=== PATIENT | female | born 1975 ===

== ENCOUNTER 2018-05-05 10:21 | Emergency (ER) | payer OTHER ==
[2018-05-05 10:28] VITALS: BMI 34.5
[2018-05-05 10:29] VITALS: O2SAT 98
[2018-05-05] MEDS ORDERED: Albuterol-Ipratrop 3 mg / 0.5 (3 ml) UD INH STA (11:08)
[2018-05-05] MEDS ORDERED: Albuterol-Ipratrop 3 mg / 0.5 (3 ml) UD ONE (11:21)
[2018-05-05 12:05] LABS: BASO # 0.1 K/uL (0.0-0.2); BASO % 0.6 % (0.0-2.0); EOS # 0.4 K/uL (0.0-0.7); HEMOGLOBIN 10.2 g/dL (12.0-16.0); LYMPH # 1.9 K/uL (1.0-4.3); MEAN CELL VOLUME 65.3 fl (81.0-99.0); MEAN CORPUSCULAR HEMOGLOBIN 21.1 pg (27.0-31.0); MEAN CORPUSCULAR HGB CONC 32.3 g/dL (33.0-37.0); MEAN PLATELET VOLUME 7.9 fl (7.2-11.7); MONO # 0.6 K/uL (0.0-0.8); MONO % 7.1 % (0.0-10.0); NEUT # 6.1 K/uL (1.8-7.0); NEUT % 67.3 % (50.0-75.0); NRBC % 0.1 % (0.0-0.0); RBC 4.85 Mil/uL (3.80-5.20); RED CELL DISTRIBUTION WIDTH 17.5 % (11.5-14.5)
--- NOTE | 2018-05-05 12:07 | ED PDOC ---
HPI: SOB/CHF/COPD Time Seen by Provider: 05/05/18 10:25 Chief Complaint (Nursing): Shortness Of Breath Chief Complaint (Provider): SOB History Per: Patient History/Exam Limitations: no limitations Onset/Duration Of Symptoms: Hrs (this morning) Current Symptoms Are (Timing): Better Associated Symptoms: denies: Fever, Chills, Chest Pain Additional Complaint(s): Lilian Jimenez is a 43 year old female, with a past medical history of asthma, who presents to the emergency department for evaluation of shortness of breath onset this morning. Patient states she was walking at the park when she began to feel short of breath. Patient also reports an episode of chest tightness yesterday but she took Albuterol at home with improvement. She reports an occasional right leg swelling ongoing for a long time but denies any chest pain , fever, chills or other medical complaints. Patient states she currently feels better. PMD: None provided. Past Medical History Reviewed: Historical Data, Nursing Documentation, Vital Signs Vital Signs: Last Vital Signs Temp 98.7 F 05/05/18 14:13 Pulse 84 05/05/18 14:13 Resp 16 05/05/18 14:13 BP 133/78 05/05/18 14:13 Pulse Ox 98 05/05/18 14:13 - Medical History PMH: Asthma, HTN - Surgical History Surgical History: Appendectomy, Cholecystectomy - Family History Family History: States: Unknown Family Hx - Social History Current smoker - smoking cessation education provided: No Alcohol: None Drugs: Denies - Immunization History Hx Tetanus Toxoid Vaccination: No Hx Influenza Vaccination: No Hx Pneumococcal Vaccination: No - Home Medications Home Medications: Ambulatory Orders Medication Instructions Recorded Albuterol HFA [Ventolin HFA 90 2 puff IH [id number] PRN 04/07/17 mcg/actuation (8 g)] Albuterol 0.083% [Albuterol 3 ml IH Q6H PRN 5 Days neb 11/18/17 Sulfate 3 Ml] predniSONE [Prednisone] 40 mg PO DAILY #10 tab 03/14/18 Albuterol HFA [Ventolin HFA 90 1 - 2 puff IH Q4H PRN #1 bottle 05/05/18 mcg/actuation (8 g)] predniSONE [Prednisone] 40 mg PO DAILY #8 tab 05/05/18 - Allergies Allergies/Adverse Reactions: Allergies Allergy/AdvReac Type Severity Reaction Status Date / Time No Known Allergies Allergy Verified 03/14/18 21:26 Review of Systems ROS Statement: Except As Marked, All Systems Reviewed And Found Negative Constitutional: Negative for: Fever, Chills Cardiovascular: Negative for: Chest Pain Respiratory: Positive for: Shortness of Breath Skin: Positive for: Other (occasional leg swelling) Physical Exam - Reviewed Nursing Documentation Reviewed: Yes Vital Signs Reviewed: Yes - Physical Exam Appears: Positive for: No Acute Distress Head Exam: Positive for: ATRAUMATIC, NORMAL INSPECTION, NORMOCEPHALIC Skin: Positive for: Normal Color, Warm, Dry Eye Exam: Positive for: Normal appearance, EOMI, PERRL ENT: Positive for: Normal ENT Inspection Neck: Positive for: Painless ROM Cardiovascular/Chest: Positive for: Regular Rate, Rhythm. Negative for: Murmur Respiratory: Positive for: Wheezing (slight). Negative for: Respiratory Distress Gastrointestinal/Abdominal: Positive for: Normal Exam, Soft. Negative for: Tenderness Back: Positive for: Normal Inspection Extremity: Positive for: Normal ROM (upper and lower extremities), Capillary Refill (less than 2 second, neurovascular intact), Swelling (mild to right leg) . Negative for: Deformity Neurologic/Psych: Positive for: Alert, Oriented. Negative for: Motor/Sensory Deficits - Laboratory Results Result Diagrams: 05/05/18 11:50 05/05/18 11:50 - ECG O2 Sat by Pulse Oximetry: 98 (RA) Pulse Ox Interpretation: Normal Medical Decision Making Medical Decision Making: Time: 10:54 Initial Impression: asthma exacerbation, improved now Initial Plan: --CMP --CBC w/ differential --Duoneb 3 ml INH --prednisone 40 mg PO --Nebulizer treatment --Duplex Lower Extrm Vein Right [US] --Reevaluation Time: 13:21 US extremity FINDINGS: COMMON FEMORAL VEIN: Unremarkable. SUPERFICIAL FEMORAL VEIN: Unremarkable. POPLITEAL VEIN: Unremarkable. POSTERIOR TIBIAL VEIN: Unremarkable. OTHER FINDINGS: None. IMPRESSION: No evidence of deep venous thrombosis in the right lower extremity. 13:35 -Patient reports feeling better. Labs show slight anemia and elevated LFTs. Patient is aware of this and was advised to follow up with clinic. Patient is medically stable for discharge and was given Rx for Albuterol and pred. Diagnosis asthma. ----- Scribe Attestation: Documented by Heri Gray, acting as a scribe for Amaury Alaniz MD. Provider Scribe Attestation: All medical record entries made by the Scribe were at my direction and personally dictated by me. I have reviewed the chart and agree that the record accurately reflects my personal performance of the history, physical exam, medical decision making, and the department course for this patient. I have also personally directed, reviewed, and agree with the discharge instructions and disposition. Disposition - Clinical Impression Clinical Impression: Asthma - Patient ED Disposition Is Patient to be Admitted: No Counseled Patient/Family Regarding: Studies Performed, Diagnosis, Need For Followup - Disposition Referrals: [facility] [Outside] [facility] [Outside] Disposition: Routine/Home Disposition Time: 13:35 Condition: IMPROVED Additional Instructions: follow up with the clinic in 1-2 days you need to follow up for anemia, and elevated liver function tests return to the ED with any worsening or concerning symptoms Prescriptions: Albuterol HFA [Ventolin HFA 90 mcg/actuation (8 g)] 1 - 2 puff IH Q4H PRN #1 bottle PRN Reason: Wheezing predniSONE [Prednisone] 40 mg PO DAILY #8 tab Instructions: Asthma, Adult (DC) Forms: [facility] ([facility]), [facility] School/Work Excuse
[2018-05-05 12:23] LABS: ALB/GLOB RATIO 1.2 (1.0-2.1); ALBUMIN 4.2 g/dL (3.5-5.0); ALT/SGPT 54 U/L (9-52); AST/SGOT 50 U/L (14-36); BLOOD UREA NITROGEN 15 mg/dl (7-17); GFR AFRICAN-AMERICAN > 60; GFR NON-AFRICAN AMERICAN > 60
--- NOTE | 2018-05-05 13:23 | US ---
Date of service: 05/05/2018 PROCEDURE: Right lower extremity venous duplex Doppler. HISTORY: RLE swelling COMPARISON: None available. TECHNIQUE: Common femoral, superficial femoral, popliteal and posterior tibial veins were evaluated. Flow was assessed with color Doppler, compressibility, assessment of phasic flow and augmentation response. FINDINGS: COMMON FEMORAL VEIN: Unremarkable. SUPERFICIAL FEMORAL VEIN: Unremarkable. POPLITEAL VEIN: Unremarkable. POSTERIOR TIBIAL VEIN: Unremarkable. OTHER FINDINGS: None. IMPRESSION: No evidence of deep venous thrombosis in the right lower extremity.
[2018-05-05 14:14] VITALS: BP 133/78; PULSE 84; RESP 16; TEMP 98.7
== END 2018-05-05 14:16 | disposition home or self-care (01) ==
LOC: H.ER 10:21
DX: J45.901 Unspecified asthma with (acute) exacerbation (principal); I10 Essential (primary) hypertension